=== PATIENT | female | born 1960 | race African-American/Black ===

== ENCOUNTER 2017-02-10 08:59 | Emergency (ER) | payer OTHER ==
[~2017-02-10] VITALS: Ht 167.6 cm; Wt 140.0 kg
[~2017-02-10 08:59] MED LIST: DIPH50CA38 PO; DOCU-272; LURA40TA; PHENAZOPYRIDINE
[2017-02-10] MEDS ORDERED: SODIUM CHLORIDE 0.9% 500 ML IV ONE (16:29)
[2017-02-10] MEDS ORDERED: KETOROLAC 30MG/ML VIAL IV STA (16:29)
[2017-02-10 16:56] LABS: EOSINOPHILS % 2.1 % (0.0-5.0); HEMATOCRIT. 35.6 % (36.0-48.0); HEMOGLOBIN. 11.6 g/dL (12.0-16.0); LYMPHOCYTES % 38.7 % (20.0-50.0); MEAN CORPUSCULAR HEMOGLOBIN 26.9 pg (28.0-32.0); MEAN CORPUSCULAR VOLUME 82.6 fL (81.0-99.0); MEAN PLATELET VOLUME 9.2 fl (7.4-10.4); MONOCYTES % 5.3 % (2.0-8.0); NEUTROPHILS % 52.9 % (40.0-76.0); PLATELET 334 x1000/uL (130-400); RED BLOOD CELL COUNT 4.31 mill/uL (4.2-5.4); RED CELL DISTRIBUTION WIDTH 16.5 % (11.6-14.6)
[2017-02-10 16:59] LABS: PROTHROMBIN TIME 10.3 sec (9.4-11.6)
[2017-02-10 17:02] LABS: CHLORIDE 109 mEq/L (98-107)
[2017-02-10 17:07] LABS: CARBON DIOXIDE 21 mEq/L (21-32)
[2017-02-10 17:23] LABS: CLARITY URINE CLEAR (CLEAR); COLOR URINE DARK YELLOW (YELLOW); KETONES URINE TRACE (NEGATIVE); LEUKOCYTE ESTERASE URINE NEGATIVE (NEGATIVE); NITRITE URINE NEGATIVE (NEGATIVE); OCCULT BLOOD URINE NEGATIVE (NEGATIVE); PROTEIN URINE NEGATIVE (NEGATIVE); SPECIFIC GRAVITY URINE 1.026 (1.005-1.030); UROBILINOGEN URINE 0.2 E.U./dL (0.2-1.0)
[2017-02-10 18:26] VITALS: BP 123/57
== END 2017-02-10 19:08 | disposition home or self-care (01) ==
LOC: ER 09:07
DX: D25.9 Leiomyoma of uterus, unspecified (principal); I10 Essential (primary) hypertension; Z88.8 Allergy status to other drugs, medicaments and biological substances
CPT/HCPCS: 36415; 74176; 80053; 81003; 83690; 85025; 85610; 96361; 96374; 99285; J1885; J7040; Z7610; J7030

== ENCOUNTER 2017-06-15 14:50 | Emergency (ER) | payer OTHER ==
[~2017-06-15] VITALS: Ht 167.6 cm; Wt 146.0 kg
[2017-06-15] MEDS ORDERED: CLON0.1T PO (15:19)
[2017-06-15] MEDS ORDERED: AMLO10TA80 PO (15:19)
[2017-06-15] MEDS ORDERED: BENA40TA3 PO (15:19)
[2017-06-15] MEDS ORDERED: FLUT16SP15 BOTHNSTRLS (15:19)
[2017-06-15] MEDS ORDERED: LURA80TA PO (15:20)
[2017-06-15 16:20] LABS: CHLORIDE 107 mEq/L (98-107)
[2017-06-15 16:21] LABS: BASOPHILS % 0.9 % (0.0-2.0); EOSINOPHILS % 1.1 % (0.0-5.0); HEMATOCRIT. 32.9 % (36.0-48.0); HEMOGLOBIN. 10.8 g/dL (12.0-16.0); LYMPHOCYTES % 33.2 % (20.0-50.0); MEAN CORPUSCULAR HEMOGLOBIN 27.4 pg (28.0-32.0); MEAN CORPUSCULAR VOLUME 83.5 fL (81.0-99.0); MEAN PLATELET VOLUME 9.2 fl (7.4-10.4); MONOCYTES % 4.1 % (2.0-8.0); NEUTROPHILS % 60.7 % (40.0-76.0); PLATELET 258 x1000/uL (130-400); RED BLOOD CELL COUNT 3.94 mill/uL (4.2-5.4); RED CELL DISTRIBUTION WIDTH 17.2 % (11.6-14.6)
[2017-06-16 03:16] VITALS: BP 110/67
== END 2017-06-16 03:20 | disposition home or self-care (01) ==
LOC: ER 15:22
DX: R06.02 Shortness of breath (principal); F20.9 Schizophrenia, unspecified; I10 Essential (primary) hypertension; Z90.49 Acquired absence of other specified parts of digestive tract; Z88.8 Allergy status to other drugs, medicaments and biological substances
CPT/HCPCS: 36415; 71045; 80048; 84484; 85025; 85379; 93005; 99285

== ENCOUNTER 2018-09-11 15:11 | Emergency (ER) | payer MEDICAID, MEDICARE, OTHER ==
[~2018-09-11] VITALS: Ht 167.6 cm; Wt 127.0 kg
[~2018-09-11 15:11] MED LIST changes: +AMLO10TA80 PO; +BENA40TA9 PO; +CLON0.1T PO; +FLUT16SP15 BOTHNSTRLS; +LURA80TA PO
[2018-09-11] MEDS ORDERED: SODIUM CHLORIDE 0.9% 1,000 ML IV ONE (16:33)
[2018-09-11] MEDS ORDERED: KETOROLAC 30MG/ML VIAL IV STA (16:33)
[2018-09-11 17:02] LABS: CLARITY URINE TURBID (CLEAR); COLOR URINE DARK YELLOW (YELLOW); KETONES URINE 1+ (NEGATIVE); LEUKOCYTE ESTERASE URINE 2+ (NEGATIVE); NITRITE URINE NEGATIVE (NEGATIVE); OCCULT BLOOD URINE TRACE (NEGATIVE); PROTEIN URINE 1+ (NEGATIVE); SPECIFIC GRAVITY URINE 1.028 (1.005-1.030)
[2018-09-11 17:03] LABS: BASOPHILS % 1.8 % (0.0-2.0); EOSINOPHILS % 1.4 % (0.0-5.0); HEMATOCRIT. 34.7 % (36.0-48.0); HEMOGLOBIN. 11.7 g/dL (12.0-16.0); LYMPHOCYTES % 37.2 % (20.0-50.0); MEAN CORPUSCULAR HEMOGLOBIN 28.9 pg (28.0-32.0); MEAN CORPUSCULAR VOLUME 85.7 fL (81.0-99.0); MEAN PLATELET VOLUME 10.3 fl (7.4-10.4); MONOCYTES % 4.9 % (2.0-8.0); NEUTROPHILS % 54.7 % (40.0-76.0); PLATELET 217 x1000/uL (130-400); RED BLOOD CELL COUNT 4.05 mill/uL (4.2-5.4); RED CELL DISTRIBUTION WIDTH 15.9 % (11.6-14.6)
[2018-09-11 17:04] LABS: CHLORIDE 108 mEq/L (98-107); PROTHROMBIN TIME 10.7 sec (9.6-11.0)
[2018-09-11 17:33] LABS: *AMPHETAMINES SCREEN URINE NEGATIVE (NEGATIVE); *BARBITURATES SCREEN URINE NEGATIVE (NEGATIVE); *BENZODIAZEPINES SCREEN URINE NEGATIVE (NEGATIVE); *COCAINE SCREEN URINE NEGATIVE (NEGATIVE); METHADONE URINE SCREEN NEGATIVE (NEGATIVE); OPIATES URINE SCREEN NEGATIVE (NEGATIVE); PHENCYCLIDINE URINE SCREEN NEGATIVE (NEGATIVE)
[2018-09-11 17:34] LABS: CANNABINOID URINE SCREEN NEGATIVE (NEGATIVE)
[2018-09-11 19:55] VITALS: BP 119/81
== END 2018-09-11 20:51 | disposition home or self-care (01) ==
LOC: ER 15:11
DX: N39.0 Urinary tract infection, site not specified (principal); D25.9 Leiomyoma of uterus, unspecified; I10 Essential (primary) hypertension; F20.9 Schizophrenia, unspecified; F14.10 Cocaine abuse, uncomplicated; Z90.49 Acquired absence of other specified parts of digestive tract; Z87.19 Personal history of other diseases of the digestive system; Z98.84 Bariatric surgery status
CPT/HCPCS: 36415; 74176; 80053; 80305; 81003; 83690; 85025; 85610; 96374; 99284; J1885; J7030

== ENCOUNTER 2020-04-28 05:40 | Emergency (ER) | payer MEDICARE ==
[~2020-04-28] VITALS: Ht 167.6 cm; Wt 124.0 kg
[~2020-04-28 05:40] MED LIST changes: +AMOX-494 MT; -BENA40TA9 PO; -CLON0.1T PO; +LIP40 PO; +LURA60TA MT
[2020-04-28 05:42] VITALS: BP 140/91
[2020-04-28] MEDS ORDERED: TOPUD MT (06:11)
== END 2020-04-28 06:20 | disposition home or self-care (01) ==
LOC: ER 05:40
DX: M79.641 Pain in right hand (principal); I10 Essential (primary) hypertension; Z88.8 Allergy status to other drugs, medicaments and biological substances; Z79.899 Other long term (current) drug therapy; Z90.49 Acquired absence of other specified parts of digestive tract; Z98.890 Other specified postprocedural states; Z86.59 Personal history of other mental and behavioral disorders
CPT/HCPCS: 99282

== ENCOUNTER 2020-10-04 11:40 | Inpatient (IN) | payer MEDICARE ==
[~2020-10-04] VITALS: Ht 167.6 cm; Wt 133.9 kg
[~2020-10-04 11:40] MED LIST changes: +ACET-2708 MT; +TOPUD MT
[2020-10-04] MEDS ORDERED: NITROGLYCERIN 0.4MG TABLET SL SL PRN (14:30)
[2020-10-04] MEDS ORDERED: ASPIRIN 81MG TABLET PO ONE (14:30)
[2020-10-04 15:20] LABS: BASOPHILS % 1.3 % (0.0-2.0); CHLORIDE 109 mEq/L (98-107); EOSINOPHILS % 2.1 % (0.0-5.0); HEMATOCRIT. 37.2 % (36.0-48.0); HEMOGLOBIN. 12.4 g/dL (12.0-16.0); LYMPHOCYTES % 38.7 % (20.0-50.0); MEAN CORPUSCULAR VOLUME 87.3 fL (81.0-99.0); MEAN PLATELET VOLUME 9.7 fl (7.4-10.4); MONOCYTES % 5.4 % (2.0-8.0); NEUTROPHILS % 52.5 % (40.0-76.0); PLATELET 241 x1000/uL (130-400); RED BLOOD CELL COUNT 4.26 mill/uL (4.2-5.4); RED CELL DISTRIBUTION WIDTH 14.8 % (11.6-14.6)
[2020-10-04 15:31] LABS: D-DIMER 0.99 mg/L FEU (<0.50); PARTIAL THROMBOPLASTIN TIME 29.3 sec (23.4-31.0); PROTHROMBIN TIME 10.3 sec (9.6-11.0)
[2020-10-04] MEDS ORDERED: ACETAMINOPHEN 325MG TABLET PO ONE (18:30)
[2020-10-04] MEDS ORDERED: IOHEXOL-350 100 ML BOTTLE ONE (23:26)
[2020-10-05 04:42] VITALS: BP 178/112
[2020-10-05] MEDS ORDERED: POLYVINYL ALCOHOL OPHTH DROPS 15ML BOTHEYE PRN (06:00)
[2020-10-05] MEDS: HYDRALAZINE HCL 50MG TABLET PO SCH ×3 (07:24→21:04)
[2020-10-05 08:00] VITALS: BP 154/101
[2020-10-05] MEDS: MULTIVITAMINS,THER W-MINERALS TABLET PO SCH (09:16)
[2020-10-05] MEDS: ASPIRIN 81MG TABLET PO SCH (09:17)
[2020-10-05] MEDS: BENAZEPRIL 10MG TABLET PO SCH (09:17)
[2020-10-05] MEDS: FLUTICASONE PROPIONATE 50MCG/SPRAY BOTTLE BOTHNSTRLS SCH ×2 (13:02→21:05)
[2020-10-05] MEDS: AMLODIPINE 5MG TABLET PO SCH (13:05)
[2020-10-05 14:00] VITALS: BP 149/88
[2020-10-05] MEDS: TRAMADOL 50MG TABLET PO PRN ×2 (14:04→21:04)
[2020-10-05 16:00] VITALS: BP 134/100
[2020-10-05 20:00] VITALS: BP 156/89
[2020-10-05] MEDS ORDERED: ATORVASTATIN CALCIUM 40MG TABLET PO SCH (21:00)
[2020-10-06] VITALS: BP 139/76
[2020-10-06] MEDS: HYDRALAZINE HCL 50MG TABLET PO SCH ×2 (06:00→08:32)
[2020-10-06 08:00] VITALS: BP 134/92
[2020-10-06] MEDS: MULTIVITAMINS,THER W-MINERALS TABLET PO SCH (08:32)
[2020-10-06] MEDS: BENAZEPRIL 10MG TABLET PO SCH (08:32)
[2020-10-06] MEDS: FLUTICASONE PROPIONATE 50MCG/SPRAY BOTTLE BOTHNSTRLS SCH (08:32)
[2020-10-06] MEDS: ASPIRIN 81MG TABLET PO SCH (08:33)
[2020-10-06] MEDS: AMLODIPINE 5MG TABLET PO SCH (08:33)
[2020-10-06 10:18] VITALS: BP 134/92
== END 2020-10-06 11:25 | disposition home or self-care (01) | DRG 194 ==
LOC: ER 11:40 → MICUSO 18:13 → 7EST 10-05 01:00
PROVIDERS: ADMIT Internal Medicine; ATTEND Internal Medicine
DX: I11.0 Hypertensive heart disease with heart failure (principal); G90.8 Other disorders of autonomic nervous system; E87.8 Other disorders of electrolyte and fluid balance, not elsewhere classified; I50.33 Acute on chronic diastolic (congestive) heart failure; I16.0 Hypertensive urgency; R00.1 Bradycardia, unspecified; Z20.822 Contact with and (suspected) exposure to COVID-19; E66.9 Obesity, unspecified; E78.5 Hyperlipidemia, unspecified; I25.10 Atherosclerotic heart disease of native coronary artery without angina pectoris; Z86.16 Personal history of COVID-19; Z71.3 Dietary counseling and surveillance; Z82.49 Family history of ischemic heart disease and other diseases of the circulatory system; Z98.61 Coronary angioplasty status; Z98.84 Bariatric surgery status; Z88.8 Allergy status to other drugs, medicaments and biological substances
CPT/HCPCS: 36415; 71045; 71275; 80053; 83880; 84484; 85025; 85379; 87426; 93005; 93306; 93970; 99285; Q9967

== ENCOUNTER 2020-11-04 22:08 | Emergency (ER) | payer MEDICARE ==
[~2020-11-04] VITALS: Ht 167.6 cm; Wt 125.0 kg
[~2020-11-04 22:08] MED LIST changes: -AMOX-494 MT; +DOCU-268; -DOCU-272
[2020-11-04] MEDS ORDERED: MAGNESIUM/ALUMINUM HYDROXIDE/SIMETHICONE 30ML UDC PO STA (22:55)
[2020-11-04 23:59] LABS: BASOPHILS % 1.7 % (0.0-2.0); EOSINOPHILS % 1.5 % (0.0-5.0); HEMATOCRIT. 31.6 % (36.0-48.0); HEMOGLOBIN. 10.8 g/dL (12.0-16.0); LYMPHOCYTES % 34.4 % (20.0-50.0); MEAN CORPUSCULAR HEMOGLOBIN 29.4 pg (28.0-32.0); MEAN CORPUSCULAR VOLUME 86.2 fL (81.0-99.0); MEAN PLATELET VOLUME 9.2 fl (7.4-10.4); MONOCYTES % 7.9 % (2.0-8.0); NEUTROPHILS % 54.5 % (40.0-76.0); PLATELET 198 x1000/uL (130-400); RED BLOOD CELL COUNT 3.67 mill/uL (4.2-5.4); RED CELL DISTRIBUTION WIDTH 15.1 % (11.6-14.6)
[2020-11-05 00:04] LABS: CHLORIDE 110 mEq/L (98-107)
[2020-11-05 03:36] VITALS: BP 126/82
== END 2020-11-05 03:41 | disposition home or self-care (01) ==
LOC: ER 22:08
DX: K29.70 Gastritis, unspecified, without bleeding (principal); R79.89 Other specified abnormal findings of blood chemistry; I10 Essential (primary) hypertension
CPT/HCPCS: 36415; 80053; 84484; 85025; 93005; 99285

== ENCOUNTER 2021-04-23 06:26 | Emergency (ER) | payer MEDICARE ==
[~2021-04-23] VITALS: Ht 167.6 cm; Wt 134.0 kg
[2021-04-23] MEDS ORDERED: TETANUS, DIPHTHERIA, PERTUSSIS VAC/PF 0.5ML (>10YR OLD) IM ONE (07:00)
[2021-04-23] MEDS ORDERED: ACETAMINOPHEN 325MG TABLET PO ONE (07:00)
[2021-04-23] MEDS ORDERED: BO1 TP (09:47)
[2021-04-23] MEDS ORDERED: ACET-2708 MT (09:47)
[2021-04-23 10:13] VITALS: BP 138/68
== END 2021-04-23 10:16 | disposition home or self-care (01) ==
LOC: ER 06:26
DX: S90.812A Abrasion, left foot, initial encounter (principal); I10 Essential (primary) hypertension; Z88.8 Allergy status to other drugs, medicaments and biological substances; Z98.890 Other specified postprocedural states; X58.XXXA Exposure to other specified factors, initial encounter; Y93.89 Activity, other specified; Y92.89 Other specified places as the place of occurrence of the external cause; Y99.8 Other external cause status
CPT/HCPCS: 73630; 90471; 90715; 99283

== ENCOUNTER 2022-06-01 18:46 | Emergency (ER) | payer MEDICAID, MEDICARE ==
[~2022-06-01] VITALS: Ht 167.6 cm; Wt 120.0 kg
[~2022-06-01 18:46] MED LIST changes: +BO1 TP; -LURA40TA; +LURA40TA2; -LURA80TA PO; +LURA80TA2 PO
[2022-06-01 18:55] VITALS: BP 126/78
[2022-06-01] MEDS ORDERED: METH-653 MT (19:18)
== END 2022-06-01 22:23 | disposition home or self-care (01) ==
LOC: ER 18:46
DX: M79.652 Pain in left thigh (principal); I10 Essential (primary) hypertension; Z79.899 Other long term (current) drug therapy; Z98.890 Other specified postprocedural states
CPT/HCPCS: 99281; 99283

== ENCOUNTER 2022-09-27 14:05 | Emergency (ER) | payer MEDICARE ==
[~2022-09-27] VITALS: Ht 167.6 cm; Wt 120.0 kg
[~2022-09-27 14:05] MED LIST changes: +METH-653 MT
[2022-09-27 14:07] VITALS: O2SAT 97
[2022-09-27] MEDS ORDERED: KETOROLAC 60MG/2ML VIAL IM ONE (14:45)
[2022-09-27] MEDS ORDERED: IBUP-2028 MT (17:09)
[2022-09-27 17:14] VITALS: BP 142/80; PULSE 78; RESP 16; TEMP 97.8
== END 2022-09-27 17:15 | disposition home or self-care (01) ==
LOC: ER 14:12
DX: M79.605 Pain in left leg (principal); M79.604 Pain in right leg; E78.00 Pure hypercholesterolemia, unspecified; I10 Essential (primary) hypertension; Z88.8 Allergy status to other drugs, medicaments and biological substances; Z79.899 Other long term (current) drug therapy; Z86.59 Personal history of other mental and behavioral disorders; Z98.890 Other specified postprocedural states; Z90.49 Acquired absence of other specified parts of digestive tract
CPT/HCPCS: 99285; 93970; 96372; J1885

== ENCOUNTER 2024-05-16 21:24 | Emergency (ER) | payer MEDICARE ==
[~2024-05-16] VITALS: Ht 167.6 cm; Wt 132.0 kg
[~2024-05-16 21:24] MED LIST changes: +ASPI-1406 PO; +BACL-141 PO; -BO1 TP; -DIPH50CA38 PO; -DOCU-268; +ESCI-7 PO; +FAMO20TA8 PO; -FLUT16SP15 BOTHNSTRLS; +ISOS60TA76 PO; +LISI40TA13 PO; +LOSA50TA41 PO; -LURA60TA MT; -LURA80TA2 PO; -METH-653 MT; -PHENAZOPYRIDINE
[2024-05-16 21:38] VITALS: BP 127/76; TEMP 36.9; O2SAT 98
[2024-05-16 21:41] VITALS: PULSE 95; RESP 16; O2SAT 98
[2024-05-17 00:27] VITALS: TEMP 98.4
[2024-05-17] MEDS: ACETAMINOPHEN 650MG/20.3ML UDC PO ONE (00:27)
[2024-05-17] MEDS ORDERED: BENZ100C86 MT (01:44)
== END 2024-05-17 02:06 | disposition home or self-care (01) ==
LOC: ER 21:24
DX: J06.9 Acute upper respiratory infection, unspecified (principal); B97.89 Other viral agents as the cause of diseases classified elsewhere; J02.8 Acute pharyngitis due to other specified organisms; I10 Essential (primary) hypertension; Z79.82 Long term (current) use of aspirin; Z79.899 Other long term (current) drug therapy; Z98.84 Bariatric surgery status
CPT/HCPCS: 71045; 87070; 87430; 99284

== ENCOUNTER 2024-09-10 12:45 | Emergency (ER) | payer MEDICARE ==
[~2024-09-10] VITALS: Ht 165.1 cm; Wt 137.0 kg
[~2024-09-10 12:45] MED LIST changes: +BENZ100C86 MT
[2024-09-10 12:55] VITALS: TEMP 36.7; O2SAT 97
[2024-09-10 14:51] VITALS: TEMP 98
[2024-09-10] MEDS: ACETAMINOPHEN 500MG TABLET PO ONE (14:51)
[2024-09-10] MEDS ORDERED: ACET-2708 MT (16:02)
[2024-09-10 17:26] VITALS: BP 126/77; PULSE 57; RESP 18; O2SAT 96
== END 2024-09-10 17:37 | disposition home or self-care (01) ==
LOC: ER 12:45
DX: R10.30 Lower abdominal pain, unspecified (principal); M25.551 Pain in right hip; I31.39 Other pericardial effusion (noninflammatory); I10 Essential (primary) hypertension; Z79.82 Long term (current) use of aspirin; Z79.899 Other long term (current) drug therapy; Z90.49 Acquired absence of other specified parts of digestive tract; Z98.84 Bariatric surgery status
CPT/HCPCS: 72170; 74176; 99284